=== PATIENT | female | born 1960 | race Caucasian/White ===

== ENCOUNTER 2018-11-02 13:51 | Outpatient (CLI) | payer OTHER ==
--- NOTE | 2018-11-02 15:12 | BD ---
DEXA BONE MINERAL DENSITOMETRY STUDY: DATE: 11/02/2018. HISTORY: Postmenopausal. FINDINGS: Lumbar Spine: BMD (g/cm2) L1 0.985 T-Score: 0 Z-Score: 1.1 L2 1.076 T-Score: 0.4 Z-Score: 1.7 L3 1.113 T-Score: 0.3 Z-Score: 1.6 L4 1.243 T-Score: 1.7 Z-Score: 3.0 L1-L4 1.113 T-Score: 0.6 Z-Score: 1.9 Femoral Neck: 0.986 T-Score: 1.2 Z-Score: 2.4 Total Femur: 1.181 T-Score: 2.0 Z-Score: 2.8 Impression: Normal bone mineralization of the lumbar spine and left femoral neck. POS: [facility]
== END 2018-11-02 13:52 | disposition home or self-care (01) ==
LOC: BICMAMMO 13:51
PROVIDERS: ATTEND Obstetrics & Gynecology
DX: Z12.31 Encounter for screening mammogram for malignant neoplasm of breast (principal); Z13.820 Encounter for screening for osteoporosis; R92.1 Mammographic calcification found on diagnostic imaging of breast
CPT/HCPCS: 77063; 77067; 77080

== ENCOUNTER 2018-12-14 10:28 | Emergency (ER) | payer OTHER ==
--- NOTE | 2018-12-14 11:20 | RAD ---
LEFT FOREARM TWO VIEWS: HISTORY: Fall with left forearm pain. TECHNIQUE: AP and lateral views of the left forearm are obtained. FINDINGS: Two views of the left forearm demonstrate no evidence of obvious ulnar fractures or lesions. There is a subtle area of lucency involving the radial head, on the AP view. This may represent a no ndisplaced fracture or may represent a nutrient foramen. I do recommend correlation with dedicated l eft elbow radiographs, including oblique views of the radial head. The rest of the left forearm is u nremarkable. IMPRESSION: Possible proximal radial head fracture. Correlate with dedicated radiographs, left elbow. POS: [facility]
--- NOTE | 2018-12-14 12:13 | RAD ---
LEFT ELBOW 4 VIEWS: Date: 12/14/18 HISTORY: Injury left elbow with pain. FINDINGS: There is slight impaction of the radial neck and evidence of a subtle lucency through the neck consis tent with a nondisplaced fracture. No evidence of significant joint effusion. IMPRESSION: Evidence of a nondisplaced radial neck fracture. POS: [facility]
== END 2018-12-14 12:30 | disposition home or self-care (01) ==
LOC: SCSER 10:28
DX: S52.125A Nondisplaced fracture of head of left radius, initial encounter for closed fracture (principal); E03.9 Hypothyroidism, unspecified; Z79.891 Long term (current) use of opiate analgesic; Z79.899 Other long term (current) drug therapy; W19.XXXA Unspecified fall, initial encounter; Y93.B9 Activity, other involving muscle strengthening exercises
CPT/HCPCS: 24650

== ENCOUNTER 2019-09-01 10:15 | Outpatient (CLI) | payer OTHER ==
--- NOTE | 2019-09-01 12:17 | MRI ---
MRI LUMBAR SPINE NONCONTRAST: DATE: 09/01/2019 HISTORY: 58-year-old female with left lumbar radiculopathy and severe low back pain COMPARISON: None available FINDINGS: There is a transitional level at the lumbosacral junction. Because no plain radiographic studies, CTs , of the thoracic and lumbar spines are available for comparison, the following, somewhat arbitrary designation of levels will be used: The lowest rib-bearing vertebra will be designated as T12. As suc h, the transitional level will be designated as L6. Vertebral body heights are maintained. Conus medullaris terminates at T12-L1. Multiple bilateral parapelvic renal cysts. No major pathology of per ivertebral spaces. No major bone marrow signal abnormality. T12-L1:Normal L1-2:Normal L2-3:Normal L3-4:Mild bilateral facet DJD causes a very mild grade 1 anterolisthesis of L3 on L4. Disc space is m aintained. Diffuse disc bulge. Mild ligamentum flavum thickening and mild facet hypertrophy. All of these factors result in mild central spinal canal stenosis. The addition of posterior epidural fat pa d results in decreased AP diameter of the thecal sac, with mild to moderate thecal sac stenosis. No high-grade neural foraminal stenosis. L4-5:In the anterior aspect of the left neural foramen, there is an approximately 1.3 x 0.8 x 0.5 cm mass with low signal intensity on all pulse sequences, probably representing a superiorly migrated disc fragment. It displaces the exiting left L4 nerve root superiorly within the left neural foramen, causing moderate to severe left neural foraminal stenosis. There is moderate right neural foraminal stenosis. Mild diffuse disc bulge. No high-grade central spinal canal stenosis. Mild bilate ral facet DJD. L5-6:Mild bilateral facet DJD. Moderate disc space narrowing. Diffuse disc bulge. No high-grade centr al stenosis. Mild right neural foraminal stenosis. Moderate left neural foraminal stenosis. L6-S1: No central or neural foraminal stenosis. The left L6 transverse process is fused with the left S1 sacral ala. The status of the right side is uncertain because the sagittal images do not reach far laterally enough. IMPRESSION: 1) transitional level at lumbosacral junction, which is somewhat arbitrarily designated as L6 for the purposes of this report. 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
== END 2019-09-01 10:16 | disposition home or self-care (01) ==
LOC: BICMRI 10:15
PROVIDERS: ATTEND Family Medicine
DX: M51.16 Intervertebral disc disorders with radiculopathy, lumbar region (principal); Q76.49 Other congenital malformations of spine, not associated with scoliosis
CPT/HCPCS: 72148

== ENCOUNTER 2025-11-13 08:45 | Outpatient (CLI) | payer OTHER | END 2025-11-13 08:46 | disposition home or self-care (01) | LOC: SCSBT 08:45 | PROVIDERS: ATTEND Family Medicine | DX: Z13.820 Encounter for screening for osteoporosis (principal); Z78.0 Asymptomatic menopausal state | CPT/HCPCS: 77080 ==